=== PATIENT | male | born 2000 | race Two or more races ===

== ENCOUNTER 2020-12-18 07:51 | Inpatient (IN) | payer MEDICAID, OTHER ==
[~2020-12-18] VITALS: Ht 172.7 cm; Wt 60.0 kg
[2020-12-18] VITALS (28 sets, daily range): BP systolic 90–139; BP diastolic 43–91
[2020-12-18] MEDS ORDERED: SODIUM CHLORIDE 0.9% 1,000 ML IV ONE ×3 (08:00→11:00)
[2020-12-18 08:26] LABS: Basophils # (auto) 0 10 ^3/uL (0-0.2); Basophils % (auto) 0.6 % (0.0-2.0); Eosinophils # (auto) 0 10 ^3/uL (0-0.8); Eosinophils % (auto) 0.5 % (0.0-7.0); Hemoglobin 15.4 g/dL (13.5-17.5); Lymphocytes # (auto) 2.5 10 ^3/uL (0.4-5.4); Lymphocytes % (auto) 35.2 % (10.0-50.0); Mean Corpuscular Hemoglobin 33.1 pg (28.0-32.0); Mean Corpuscular Hgb Conc. 34.2 g/dL (32.0-36.0); Mean Corpuscular Volume 96.6 fL (80.0-100.0); Monocytes # (auto) 0.8 10 ^3/uL (0-1.3); Monocytes % (auto) 10.5 % (0.0-12.0); Neutrophils # (auto) 3.8 10 ^3/uL (1.6-8.6); Neutrophils % (auto) 53.2 % (37.0-80.0); Platelet Count (auto) 213 10^3/uL (140-450); Red Blood Cells 4.66 10^6/uL (4.5-5.90); Red Cell Distribution Width 13.8 % (11.8-14.3); White Blood Cell 7.2 10^3/uL (4.4-10.8)
[2020-12-18 08:31] LABS: Urine WBC None Seen /hpf (0 - 3)
[2020-12-18] MEDS ORDERED: MIDAZOLAM DRIP 50 mg/50mL 50 ML IV ONE (08:35)
[2020-12-18 08:38] LABS: INR 1.02 (0.9-1.15); Partial Thromboplastin Time 23.7 sec (23.0-31.2)
[2020-12-18 08:38] LABS: Urine Bacteria FEW /hpf (None Seen); Urine Blood Negative /uL (Negative); Urine Mucus FEW (None Seen); Urine Specific Gravity 1.022 (1.001-1.035); Urine Sperm PRESENT /hpf (None Seen)
[2020-12-18 08:40] LABS: Anion Gap 11 (5-15); Blood Urea Nitrogen 17 mg/dL (7-18); Calcium 8.5 mg/dL (8.5-10.1); Carbon Dioxide 23 mmol/L (21-32); Chloride 110 mmol/L (98-107); Glucose 104 mg/dL (74-106); Potassium 3.3 mmol/L (3.5-5.1); Sodium 144 mmol/L (136-145)
[2020-12-18 08:41] LABS: Lactic Acid w/Reflex 3.9 mmol/L (0.4-2.0)
[2020-12-18 08:48] LABS: Alanine Aminotransferase 22 U/L (16-61); Albumin 4.4 g/dL (3.4-5.0); Alkaline Phosphatase 72 U/L (45-117); Aspartate Aminotransferase 21 U/L (15-37); Bilirubin, Total 0.5 mg/dL (0.2-1.0); GFR African American 156 mL/min; GFR Non-African American 129 mL/min; Total Protein 7.8 g/dL (6.4-8.2)
[2020-12-18 08:56] LABS: Amphetamine Screen, Urine NEGATIVE (NEGATIVE); Barbiturate Scree,Urine NEGATIVE (NEGATIVE); Benzodiazephine Screen, Urine NEGATIVE (NEGATIVE); Cannabinoid Screen, Urine POSITIVE (NEGATIVE); Cocaine Screen, Urine NEGATIVE (NEGATIVE); Opiate Scree,Urine NEGATIVE (NEGATIVE); Phencyclidine Screen, Urine NEGATIVE (NEGATIVE)
[2020-12-18] MEDS ORDERED: cefTRIAXone 1GM/50ML D5W 50 ML IV ONE (10:15)
[2020-12-18] MEDS ORDERED: POTASSIUM CHL 20MEQ/100ML 100 ML IV ONE (11:00)
[2020-12-18] MEDS: SODIUM CHLORIDE 0.9% 1,000 ML IV SCH ×2 (11:35→22:32)
[2020-12-18] MEDS ORDERED: FOLIC ACID 1 MG, MULTIPLE VITAMIN 10 ML, MAGNESIUM SULF SDV 50% 8 MEQ, THIAMINE INJ 100... INJ SCH ×5 (12:00)
[2020-12-18] MEDS ORDERED: NOREPINEPHRINE 8 MG/250ML KIT 250 ML IV ONE (12:08)
[2020-12-18] MEDS: MIDAZOLAM DRIP 50 mg/50mL 50 ML IV SCH ×3 (12:15→23:12)
[2020-12-18] MEDS ORDERED: MORPHINE SULF INJ 2 MG/ML SYRINGE 1ML IV PRN (16:00)
[2020-12-18] MEDS ORDERED: NITROGLYCERIN 0.4 MG SL TAB SL PRN (16:00)
[2020-12-18] MEDS ORDERED: ALBUTEROL SULF 2.5 MG/0.5ML(0.5%) NEB SOLN NEB PRN (16:30)
[2020-12-18] MEDS ORDERED: ENOXAPARIN SOD 40 MG/0.4 ML SYRINGE SC ONE (16:45)
[2020-12-18] MEDS ORDERED: ACETAMINOPHEN 650 MG RECT SUPP PR ONE (17:45)
[2020-12-18 18:06] LABS: Basophils # (auto) 0 10 ^3/uL (0-0.2); Basophils % (auto) 0.1 % (0.0-2.0); Eosinophils # (auto) 0 10 ^3/uL (0-0.8); Hematocrit 42.2 % (41.0-53.0); Hemoglobin 14.1 g/dL (13.5-17.5); Lymphocytes # (auto) 0.6 10 ^3/uL (0.4-5.4); Lymphocytes % (auto) 5.7 % (10.0-50.0); Mean Corpuscular Hemoglobin 32.7 pg (28.0-32.0); Mean Corpuscular Hgb Conc. 33.4 g/dL (32.0-36.0); Mean Corpuscular Volume 97.9 fL (80.0-100.0); Monocytes # (auto) 0.7 10 ^3/uL (0-1.3); Monocytes % (auto) 6.5 % (0.0-12.0); Neutrophils # (auto) 9.4 10 ^3/uL (1.6-8.6); Neutrophils % (auto) 87.7 % (37.0-80.0); Platelet Count (auto) 192 10^3/uL (140-450); Red Blood Cells 4.31 10^6/uL (4.5-5.90); Red Cell Distribution Width 13.8 % (11.8-14.3); White Blood Cell 10.7 10^3/uL (4.4-10.8)
[2020-12-18 18:12] LABS: BUN/Creatinine Ratio 15.2
[2020-12-18 18:13] LABS: Albumin 3.5 g/dL (3.4-5.0); Calcium 7.8 mg/dL (8.5-10.1); Magnesium 1.9 mg/dL (1.6-2.6)
[2020-12-18 18:21] LABS: Bilirubin, Total 0.8 mg/dL (0.2-1.0); Total Protein 6.6 g/dL (6.4-8.2)
[2020-12-18] MEDS ORDERED: LORazepam 2MG/ML-1ML VIAL ONE (18:51)
[2020-12-18] MEDS: LORazepam 2MG/ML-1ML VIAL IV PRN ×2 (18:55→19:21)
[2020-12-18] MEDS ORDERED: SODIUM BICARBONATE 8.4 % INJ 50ML VIAL IV ONE (19:30)
[2020-12-18] MEDS ORDERED: SODIUM CHL 0.9% IV ONE (21:30)
[2020-12-18] MEDS ORDERED: FOMEPIZOLE IV ONE (21:30)
[2020-12-18 22:00] LABS: Lactic Acid w/Reflex 5.5 mmol/L (0.4-2.0)
[2020-12-18] MEDS ORDERED: ONDANSETRON HCL 4 MG/2 ML VIAL IV PRN (22:30)
[2020-12-18] MEDS: PROPOFOL 100 ML IV SCH (23:10)
[2020-12-18] MEDS: THIAMINE 100mg/ml INJ (200mg/2ml VIAL) IV SCH (23:10)
[2020-12-18] MEDS: PYRIDOXINE HCL 50 MG TAB NG SCH (23:11)
[2020-12-19] VITALS (57 sets, daily range): BP systolic 103–142; BP diastolic 56–92
[2020-12-19 00:56] LABS: Albumin 3.5 g/dL (3.4-5.0); BUN/Creatinine Ratio 11.9; Potassium 3.9 mmol/L (3.5-5.1)
[2020-12-19 00:58] LABS: Bilirubin, Total 0.9 mg/dL (0.2-1.0); Total Protein 6.4 g/dL (6.4-8.2)
[2020-12-19] MEDS: PROPOFOL 100 ML IV SCH (03:30)
[2020-12-19] MEDS: MIDAZOLAM DRIP 50 mg/50mL 50 ML IV SCH (03:45)
[2020-12-19 04:21] LABS: Basophils # (auto) 0 10 ^3/uL (0-0.2); Basophils % (auto) 0.3 % (0.0-2.0); Eosinophils # (auto) 0 10 ^3/uL (0-0.8); Hematocrit 40.8 % (41.0-53.0); Hemoglobin 13.7 g/dL (13.5-17.5); Lymphocytes # (auto) 1.7 10 ^3/uL (0.4-5.4); Lymphocytes % (auto) 13.2 % (10.0-50.0); Mean Corpuscular Hemoglobin 32.8 pg (28.0-32.0); Mean Corpuscular Hgb Conc. 33.6 g/dL (32.0-36.0); Mean Corpuscular Volume 97.5 fL (80.0-100.0); Monocytes % (auto) 8.2 % (0.0-12.0); Neutrophils # (auto) 9.9 10 ^3/uL (1.6-8.6); Neutrophils % (auto) 78.3 % (37.0-80.0); Platelet Count (auto) 173 10^3/uL (140-450); Red Blood Cells 4.19 10^6/uL (4.5-5.90); Red Cell Distribution Width 14.2 % (11.8-14.3); White Blood Cell 12.7 10^3/uL (4.4-10.8)
[2020-12-19 04:38] LABS: Potassium 3.7 mmol/L (3.5-5.1)
[2020-12-19 04:44] LABS: BUN/Creatinine Ratio 10.9; Calcium 8.9 mg/dL (8.5-10.1)
[2020-12-19] MEDS: PYRIDOXINE HCL 50 MG TAB NG SCH ×4 (05:45→23:53)
[2020-12-19] MEDS: THIAMINE 100mg/ml INJ (200mg/2ml VIAL) IV SCH ×3 (05:45→22:17)
[2020-12-19] MEDS: SODIUM CHLORIDE 0.9% 1,000 ML IV SCH ×2 (10:00→16:45)
[2020-12-19] MEDS ORDERED: SODIUM CHL 0.9% IV SCH (10:00)
[2020-12-19] MEDS ORDERED: FOMEPIZOLE IV SCH (10:00)
[2020-12-19] MEDS: ENOXAPARIN SOD 40 MG/0.4 ML SYRINGE SC SCH (13:11)
[2020-12-19] MEDS: PANTOPRAZOLE 40 MG/10 ML VIAL INJ IV SCH (13:11)
[2020-12-19 15:23] LABS: Calcium 8.7 mg/dL (8.5-10.1); Potassium 3.3 mmol/L (3.5-5.1)
[2020-12-19 15:25] LABS: BUN/Creatinine Ratio 10.1
[2020-12-19 17:14] LABS: Lactic Acid w/Reflex 3.2 mmol/L (0.4-2.0)
[2020-12-19] MEDS ORDERED: POTASSIUM CHL 20MEQ/100ML 100 ML IV ONE (17:15)
[2020-12-19] MEDS ORDERED: ACETAMINOPHEN 325 MG TAB PO PRN (21:00)
[2020-12-19 23:58] LABS: Albumin 3.9 g/dL (3.4-5.0); BUN/Creatinine Ratio 12.9; Calcium 8.8 mg/dL (8.5-10.1); Potassium 3.3 mmol/L (3.5-5.1)
[2020-12-19 23:59] LABS: Bilirubin, Total 0.8 mg/dL (0.2-1.0); Total Protein 7.4 g/dL (6.4-8.2)
[2020-12-20 02:53] LABS: Potassium 3.1 mmol/L (3.5-5.1)
[2020-12-20 02:56] LABS: BUN/Creatinine Ratio 13.2; Bilirubin, Total 0.7 mg/dL (0.2-1.0); Total Protein 7.5 g/dL (6.4-8.2)
[2020-12-20] MEDS: SODIUM CHLORIDE 0.9% 1,000 ML IV SCH (03:10)
[2020-12-20 05:00] VITALS: BP 121/62
[2020-12-20] MEDS: THIAMINE 100mg/ml INJ (200mg/2ml VIAL) IV SCH (05:36)
[2020-12-20] MEDS: PYRIDOXINE HCL 50 MG TAB NG SCH ×3 (05:36→18:55)
[2020-12-20 07:13] LABS: Basophils # (auto) 0 10 ^3/uL (0-0.2); Basophils % (auto) 0.6 % (0.0-2.0); Eosinophils # (auto) 0.1 10 ^3/uL (0-0.8); Eosinophils % (auto) 1.5 % (0.0-7.0); Lymphocytes % (auto) 32.1 % (10.0-50.0); Mean Corpuscular Hemoglobin 32.9 pg (28.0-32.0); Mean Corpuscular Hgb Conc. 34.1 g/dL (32.0-36.0); Mean Corpuscular Volume 96.7 fL (80.0-100.0); Monocytes # (auto) 0.6 10 ^3/uL (0-1.3); Neutrophils # (auto) 3.5 10 ^3/uL (1.6-8.6); Neutrophils % (auto) 55.8 % (37.0-80.0); Nucleated Red Blood Cells % 0.1 %; Platelet Count (auto) 149 10^3/uL (140-450); Red Blood Cells 4.25 10^6/uL (4.5-5.90); Red Cell Distribution Width 13.9 % (11.8-14.3); White Blood Cell 6.3 10^3/uL (4.4-10.8)
[2020-12-20 07:57] LABS: BUN/Creatinine Ratio 15.9; Calcium 8.9 mg/dL (8.5-10.1); Potassium 3.5 mmol/L (3.5-5.1)
[2020-12-20 09:00] VITALS: BP 142/76
[2020-12-20] MEDS: ENOXAPARIN SOD 40 MG/0.4 ML SYRINGE SC SCH (09:36)
[2020-12-20] MEDS: PANTOPRAZOLE 40 MG/10 ML VIAL INJ IV SCH (09:36)
[2020-12-20 13:00] VITALS: BP 138/74
[2020-12-20] MEDS ORDERED: FOLI1TAB6 PO (15:40)
[2020-12-20] MEDS ORDERED: THIA100T5 PO (15:40)
[2020-12-20 17:00] VITALS: BP 127/87
[2020-12-20 17:27] VITALS: BP 127/87
== END 2020-12-20 19:52 | disposition home or self-care (01) | DRG 816 ==
LOC: ER 07:51 → TELE 15:51 → ICU WEST 18:08 → TELE-WESTW 12-19 22:01
PROVIDERS: ADMIT Internal Medicine; ATTEND Internal Medicine
PROC: 02HV33Z Insertion of Infusion Device into Superior Vena Cava, Percutaneous Approach (ICD-10-PCS; principal; 2020-12-18)
PROC: 5A1935Z Respiratory Ventilation, Less than 24 Consecutive Hours (ICD-10-PCS; 2020-12-18)
PROC: B548ZZA Ultrasonography of Superior Vena Cava, Guidance (ICD-10-PCS; 2020-12-18)
PROC: 0BH17EZ Insertion of Endotracheal Airway into Trachea, Via Natural or Artificial Opening (ICD-10-PCS; 2020-12-18)
DX: T51.0X1A Toxic effect of ethanol, accidental (unintentional), initial encounter (principal); J96.01 Acute respiratory failure with hypoxia; R57.9 Shock, unspecified; G92 Toxic encephalopathy; F32.9 Major depressive disorder, single episode, unspecified; T14.91XA Suicide attempt, initial encounter; Y90.8 Blood alcohol level of 240 mg/100 ml or more; F10.10 Alcohol abuse, uncomplicated; E87.2 Acidosis; Z20.822 Contact with and (suspected) exposure to COVID-19; G40.901 Epilepsy, unspecified, not intractable, with status epilepticus; Z82.49 Family history of ischemic heart disease and other diseases of the circulatory system; Y92.89 Other specified places as the place of occurrence of the external cause; F12.90 Cannabis use, unspecified, uncomplicated
CPT/HCPCS: 36415; 36600; 70450; 71045; 80048; 80053; 80307; 80320; 80329; 81001; 82805; 83605; 83735; 83930; 84484; 85025; 85610; 85730; 87040; 87070; 87077; 87081; 87086; 87186; 87205; 87426; 92610; 93005; 94003; 95819; 96361; 96365; 96367; 99291; C9113; G0378; J0696; J2250; J2704; J3480